=== PATIENT | female | born 1980 | race Caucasian/White ===

== ENCOUNTER → 2019-05-23 08:44 | Outpatient (CLI) | payer OTHER, SELFPAY ==
--- NOTE | ~2019-05-23 | MM_ITS ---
EXAMINATION: MM screening gaby BI w keshav HISTORY: Screening mammogram TECHNIQUE: Craniocaudal and mediolateral oblique 3-D tomosynthesis images were obtained and synthetic 2-D images were generated. CAD analysis was submitted and interpreted. COMPARISON: No prior mammogram is available for comparison at this institution. BREAST PARENCHYMAL COMPOSITION: The breasts are heterogeneously dense, which may obscure small masses . FINDINGS: There is no evidence of suspicious mass, calcification, or architectural distortion to sugg est malignancy in either breast. IMPRESSION: 1. No mammographic evidence of malignancy. 2. Recommend routine screening mammography in one year. BI-RADS Category 1: Negative Reviewed, dictated and finalized at location A. [employer]
== END ==
PROVIDERS: PCP Nurse Practitioner Family; Visit Provider Nurse Practitioner Family
DX: Z12.31 Encounter for screening mammogram for malignant neoplasm of breast (principal)
CPT/HCPCS: 77063; 77067

== ENCOUNTER 2020-04-18 10:08 | Emergency (ER) | payer OTHER, SELFPAY ==
[2020-04-18 10:18] VITALS: BP 151/77; PULSE 93; RESP 16; TEMP 36.6; O2SAT 100
--- NOTE | 2020-04-18 10:26 | ED.GENADULT ---
HPI - General Adult General Chief complaint: Wound/Laceration Stated complaint: severe back pain/nausea Source: patient and RN notes reviewed Mode of arrival: ambulatory Limitations: no limitations History of Present Illness HPI narrative: This is a 40-year-old white female who presented to urgent Care today with complaints of lower back and neck pain, decreased appetite, unexpected weight loss, nausea without vomiting and fatigue. According to patient she started developing symptoms on Saturday she went that Saturday to get a rapid Covid test which was negative. She notes that she took Tylenol at home for her pain she did get relief. She does not have back pain with movement and it does not radiate which leads me to believe that it is not muscular related. Patient denies any dysuria, urinary frequency, urgency, suprapubic discomfort. CVA tenderness is negative. The patient denies SOB, CP, palpitation, extremity numbness, lightheadedness, dizziness, constipation, diarrhea, chills, or fever. Influenza negative Related Data Home Medications Medication Instructions Recorded Confirmed levonorgestrel-ethinyl estrad 1 tablet PO DAILY 04/18/20 04/18/20 [Tyler (28)] Allergies Allergy/AdvReac Type Severity Reaction Status Date / Time No Known Allergies Allergy Verified 04/18/20 10:23 Review of Systems Review of Systems: All systems reviewed & are unremarkable except as noted in HPI and below (10 point system review) [facility] Social History Social History Gender identity (if verbalized by the patient): Female Exam Narrative: Exam Narrative: GENERAL: This is a well-nourished, well-developed patient, in no apparent distress. HEAD: normocephalic, atraumatic. EYES: PERRL. Sclera clear/white. Vision is grossly intact. EARS: External ears normal, auditory canals clear and without drainage, TMs normal without perforation. Hearing grossly intact. NOSE: External nose normal with no obvious nasal discharge, nares without redness, no rhinorrhea. THROAT: Mucous membranes moist, posterior pharynx slightly erythematous. NECK: Neck supple, non-tender without lymphadenopathy, masses or thyromegaly. CARDIOVASCULAR: Regular rate and rhythm without murmurs, gallops, or rubs. RESPIRATORY: Clear to auscultation. Breath sounds equal bilaterally. No wheezes, rales, or rhonchi. GASTROINTESTINAL: Abdomen soft, non-tender, nondistended. Bowel sounds are active. No hepato-splenomegaly, or palpable masses. No guarding. SKIN: warm, intact with no suspicious lesions or rash, good texture and turgor. NEURO: awake, alert, and oriented to person, place and time. There were no obvious focal neurologic abnormalities. Steady gait EXTREMITIES: Normal range of motion. No edema. No calf tenderness. Negative Homans sign bilaterally. BACK: Nontender without deformity or crepitance. No flank tenderness. Course Vital Signs Vital signs: Vital Signs Temperature 97.8 F 04/18/20 10:18 Pulse Rate 93 04/18/20 10:18 Respiratory Rate 16 04/18/20 10:18 Blood Pressure 151/77 H 04/18/20 10:18 Pulse Oximetry 100 04/18/20 10:18 Temperature 97.8 F 04/18/20 10:18 Pulse Rate 93 04/18/20 10:18 Respiratory Rate 16 04/18/20 10:18 Blood Pressure 151/77 H 04/18/20 10:18 Pulse Oximetry 100 04/18/20 10:18 Medical Decision Making Differential Diagnosis Differential Diagnosis: Viral infection versus urinary tract infection Vital Signs Vital Signs: Vital Signs Temperature 97.8 F 04/18/20 10:18 Pulse Rate 93 04/18/20 10:18 Respiratory Rate 16 04/18/20 10:18 Blood Pressure 151/77 H 04/18/20 10:18 Pulse Oximetry 100 04/18/20 10:18 Temperature 97.8 F 04/18/20 10:18 Pulse Rate 93 04/18/20 10:18 Respiratory Rate 16 04/18/20 10:18 Blood Pressure 151/77 H 04/18/20 10:18 Pulse Oximetry 100 04/18/20 10:18 Lab Data Lab results reviewed: Yes I reviewed th
== END 2020-04-18 11:02 | disposition home or self-care (01) ==
PROVIDERS: Emergency Provider Nurse Practitioner
DX: R11.0 Nausea (principal); M54.5 Low back pain; R53.83 Other fatigue; Z20.828 Contact with and (suspected) exposure to other viral communicable diseases
CPT/HCPCS: 81003; 87804; 99213; G0463

== ENCOUNTER 2020-04-19 09:16 | Outpatient (NON) | payer OTHER, SELFPAY ==
[2020-04-19 18:45] LABS: SARS-CoV-2 RNA PCR Negative
== END 2020-04-19 09:17 ==
PROVIDERS: Visit Provider Nurse Practitioner
DX: R11.0 Nausea (principal); R53.83 Other fatigue
CPT/HCPCS: 87635; C9803; U0003

== ENCOUNTER 2020-12-03 06:56 | Outpatient (CLI) | payer BC, SELFPAY ==
[2020-12-03 07:16] LABS: Basophils Percent Auto 0.2 % (0.2-1.2); Eosinophils Absolute Auto 0.1 K/mm3 (0-0.3); Eosinophils Percent Auto 1.4 % (0-4.4); Hematocrit 39.7 % (37.0-47.0); Hemoglobin 13.2 g/dL (12.0-15.0); Immature Granulocyte Absolute 0.02 K/mm3 (0.00-0.031); Immature Granulocyte Percent A 0.3 % (0-0.5); Lymphocytes Absolute Auto 1.76 K/mm3 (0.9-3.2); Lymphocytes Percent Auto 28.1 % (18.3-44.2); Mean Corpuscular HGB Conc 33.2 g/dl (32-36); Mean Corpuscular Hemoglobin 31.1 pg (26-34); Mean Corpuscular Volume 93.6 fl (80-100); Mean Platelet Volume 9.6 fl (7.4-10.4); Monocytes Absolute Auto 0.4 K/mm3 (0.1-0.6); Neutrophils Absolute Auto 3.9 K/mm3 (1.3-6.7); Platelet Count Result 317 k/mm3 (150-375); Red Blood Count 4.24 M/mm3 (4.2-5.4); Red Cell Distribution Width 12.8 % (11.5-14.5); White Blood Count 6.3 K/mm3 (4.5-10.0)
[2020-12-03 07:27] LABS: Hemoglobin A1C 5.2 % (<5.7)
[2020-12-03 08:49] LABS: Free T4 Free Thyroxine 0.86 ng/mL (0.78-2.19); Vitamin D 25 Hydroxy 61.4 ng/mL
[2020-12-03 09:19] LABS: Alanine Aminotransferase 14 U/L (4-35); Albumin Level 3.8 g/dL (3.5-5.1); Alkaline Phosphatase 60 U/L (38-126); Anion Gap 6 mmol/L (8-16); Aspartate Amino Transferase 22 U/L (14-36); Bilirubin,Total 1.1 mg/dL (0.2-1.3); Blood Urea Nitrogen 12 mg/dL (7-17); Calcium 9.3 mg/dL (8.4-10.2); Carbon Dioxide 23 mmol/L (22-30); Chloride 111 mmol/L (98-107); Cholesterol 176 mg/dL (0-200); Estimated Glomerular Filt Rate > 60; Glucose 97 mg/dL (65-110); HDL Direct 79 mg/dL; Lactate Dehydrogenase 290 U/L (313-618); Potassium 3.5 mmol/L (3.4-5.0); Sodium 140 mmol/L (137-145); Triglycerides 63 mg/dL (<150)
[2020-12-03 09:35] LABS: LDL Cholesterol Direct 80 mg/dL
[2020-12-03 10:42] LABS: Folic Acid 15.5 ng/mL (2.76->20)
== END 2020-12-03 06:57 | disposition home or self-care (01) ==
PROVIDERS: PCP Nurse Practitioner Family; Referring Provider Nurse Practitioner; Visit Provider Nurse Practitioner Family
DX: E55.9 Vitamin D deficiency, unspecified (principal); Z13.0 Encounter for screening for diseases of the blood and blood-forming organs and certain disorders involving the immune mechanism; Z13.29 Encounter for screening for other suspected endocrine disorder; Z13.220 Encounter for screening for lipoid disorders; Z13.1 Encounter for screening for diabetes mellitus
CPT/HCPCS: 36415; 80053; 80061; 82306; 82607; 82746; 83036; 83615; 84439; 84443; 85025

== ENCOUNTER → 2022-04-07 07:48 | Outpatient (CLI) | payer BC, SELFPAY ==
--- NOTE | ~2022-04-07 | MM_ITS ---
EXAMINATION: MM screening gaby BI w keshav HISTORY: Screening TECHNIQUE: Craniocaudal and mediolateral oblique 3-D tomosynthesis images were obtained and synthetic 2-D images were generated. CAD analysis was submitted and interpreted. COMPARISON: 05/23/2019 BREAST PARENCHYMAL COMPOSITION: The breasts are heterogeneously dense, which may obscure small masses . FINDINGS: There is no evidence of suspicious mass, calcification, or architectural distortion to sugg est malignancy in either breast. There has been no suspicious interval change. IMPRESSION: 1. No mammographic evidence of malignancy. 2. Recommend routine screening mammography in one year. BI-RADS Category 1: Negative Reviewed, dictated and finalized at location A. [employer]
== END ==
PROVIDERS: PCP Nurse Practitioner Family; Visit Provider Advanced Practice Midwife
DX: Z12.31 Encounter for screening mammogram for malignant neoplasm of breast (principal)
CPT/HCPCS: 77063; 77067

== ENCOUNTER 2023-06-18 15:20 | Emergency (ER) | payer OTHER, BC, SELFPAY ==
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
[2023-06-18 15:33] VITALS: BP 154/83; PULSE 100; RESP 16; TEMP 37.7; O2SAT 99
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
== END 2023-06-18 16:33 | disposition home or self-care (01) ==
PROVIDERS: Emergency Provider Nurse Practitioner Family; PCP Nurse Practitioner Family
DX: S39.012A Strain of muscle, fascia and tendon of lower back, initial encounter (principal); S29.012A Strain of muscle and tendon of back wall of thorax, initial encounter; V43.52XA Car driver injured in collision with other type car in traffic accident, initial encounter; M41.9 Scoliosis, unspecified
CPT/HCPCS: 72072; 72100; 99213; G0463

== ENCOUNTER 2023-07-19 15:01 | Outpatient (CLI) | payer BC, SELFPAY ==
--- NOTE | ~2023-07-19 | CT_ITS ---
EXAMINATION: CT soft tissue neck w con DATE: 07/19/2023 15:47 INDICATION: Cervical radiculopathy. TECHNIQUE: Computed tomography (CT) of the neck was performed with 75 mL Omnipaque-350 intravenous co ntrast. Automated exposure control and iterative reconstruction technique were employed. The dose-fabiano gth product was 383.73 mGy-cm. 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 There are no pathologically enlarged lymph nodes. The cervical c arotid arteries are normal. There is mild mucosal thickening in the paranasal sinuses. There is a rig ht otomastoid effusion. There is a small left mastoid effusion. There is mild cervical spondylosis. IMPRESSION: 1. No cervical lymphadenopathy. 2. Duplicated aortic arch. Reviewed, dictated and finalized at location E.
--- NOTE | ~2023-07-19 | CT_ITS ---
EXAMINATION: CT brain wo/w con DATE: 07/19/2023 15:47 INDICATION: Right face numbness. Numbness and tingling in the arms. TECHNIQUE: Computed tomography (CT) of the head was performed without and with 75 mL Omnipaque 350 in travenous contrast. The mA was adjusted according to patient size. Iterative reconstruction technique was employed. The dose-length product was 1124.19 mGy-cm. COMPARISON: None FINDINGS: There is no intracranial hemorrhage, acute infarction, or abnormal intracranial mass lesion . The ventricles are normal in size. The paranasal sinuses are clear. The orbits are normal. There is a right otomastoid effusion. There is a left mastoid effusion. IMPRESSION: 1. Normal brain. Reviewed, dictated and finalized at location A. IMPRESSION: 1. Normal brain.
== END 2023-07-19 15:02 ==
DX: Q25.45 Double aortic arch (principal)
CPT/HCPCS: 70470; 70491; Q9967

== ENCOUNTER 2023-09-03 10:02 | Outpatient (CLI) | payer BC, SELFPAY ==
--- NOTE | ~2023-09-03 | CT_ITS ---
EXAMINATION: CTA chest DATE: 09/03/2023 10:59 INDICATION: Double aortic arch TECHNIQUE: Computed tomographic angiography (CTA) of the chest was performed with 50 mL Omnipaque-350 intravenous contrast. Volume-rendered 3D-reconstructions of the aorta and large arteries were constr ucted by the technologist on a separate workstation. Automated exposure control and iterative reconst ruction technique were employed. The dose-length product was 346.17 mGy-cm. COMPARISON: CT dated 07/19/2023 FINDINGS: Lungs are clear with no pneumonia, suspicious pulmonary nodules, pulmonary edema or pleural effusion. Heart size is normal. No pericardial effusion. Anatomic variant right-sided aortic arch with mirror image branching pattern arising from the arch with left-sided brachiocephalic trunk supplying the lef t common carotid and left subclavian arteries. There is a diverticulum of Kommerell arising from the medial side of the proximal descending thoracic aorta which appears to contact the medial wall of the left subclavian artery without a definitive contrast opacified communication between the lumens to s uggest a true double aortic arch. There is does however appear to be a ductus arteriosum versus ligam entum arteriosum extending between the diverticulum of Kommerell and cephalad aspect of the bifurcati on of the main pulmonary artery. These vascular structures essentially encircle and compressed the tr achea and proximal esophagus. The aorta is normal in caliber with no dissection. No pathologically en larged abdominal or pelvic lymphadenopathy. Visualized upper abdomen is unremarkable. The degree thor acolumbar dextroscoliosis with moderate to severe spondylosis. IMPRESSION: 1. 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 This appears to encircle and compress the more central trachea and upper esophagus. Reviewed, dictated and finalized at location B. IMPRESSION: 1. 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 This appears to encircle and compress the more central trachea and upper esophagus.
== END 2023-09-03 10:03 ==
PROVIDERS: PCP Internal Medicine Cardiovascular Disease; Visit Provider Internal Medicine Cardiovascular Disease
DX: Q25.45 Double aortic arch (principal); Z87.891 Personal history of nicotine dependence
CPT/HCPCS: 71275; Q9967

== ENCOUNTER 2023-11-28 07:15 | Outpatient (CLI) | payer BC, SELFPAY ==
--- NOTE | ~2023-11-28 | MM_ITS ---
EXAMINATION: MM screening gaby BI w keshav HISTORY: Screening TECHNIQUE: Craniocaudal and mediolateral oblique 3-D tomosynthesis images were obtained and synthetic 2-D images were generated. CAD analysis was submitted and interpreted. COMPARISON: Comparison to multiple prior studies sequentially, with oldest reviewed study dated 04/2019. BREAST PARENCHYMAL COMPOSITION: Not dense: There are scattered areas of fibroglandular density. FINDINGS: There is no evidence of suspicious mass, calcification, or architectural distortion to sugg est malignancy in either breast. There has been no suspicious interval change. IMPRESSION: 1. No mammographic evidence of malignancy. 2. Recommend routine screening mammography in one year. BI-RADS Category 1: Negative Reviewed, dictated and finalized at location B.
== END 2023-11-28 07:16 ==
LOC: MICIMG 07:17
PROVIDERS: PCP Obstetrics & Gynecology Gynecology
DX: Z12.31 Encounter for screening mammogram for malignant neoplasm of breast (principal)
CPT/HCPCS: 77063; 77067

== ENCOUNTER 2024-07-04 08:44 | Outpatient (CLI) | payer BC, SELFPAY ==
--- NOTE | ~2024-07-04 | US_ITS ---
Pelvic ultrasound. Clinical History: Pelvic pain Technique: Realtime transabdominal scanning of the pelvis was performed. Color flow Doppler and Doppl er spectral analysis were performed. Findings: The uterus is anteverted. The endometrial stripe has a thickness of 3 mm. No focal mass is identified. The right ovary measures 3.3 x 3.5 x 1.1 cm. No significant right ovarian or adnexal mass is seen. The left ovary measures 2.4 x 3.1 x 1.7 cm. No significant left ovarian or adnexal mass is seen. There is no evidence of free fluid in the cul de sac. Impression: Unremarkable pelvic ultrasound. Reviewed, dictated and finalized at location . Impression: Unremarkable pelvic ultrasound.
== END 2024-07-04 08:45 | disposition home or self-care (01) ==
LOC: MICIMG 08:45
PROVIDERS: PCP Obstetrics & Gynecology Gynecology; Visit Provider Nurse Practitioner Women's Health
DX: O26.899 Other specified pregnancy related conditions, unspecified trimester (principal); R10.2 Pelvic and perineal pain; Z3A.00 Weeks of gestation of pregnancy not specified
CPT/HCPCS: 76856

== ENCOUNTER 2025-04-16 12:37 | Outpatient (CLI) | payer BC, SELFPAY ==
--- OUTSIDE RECORDS SUMMARY | 2025-04-16 12:45 | XMS_ITS | Clinical Summary ---
Author Organization [facility] Address [address] [place] [address] Care Team Providers Care Fire Management Specialist Name Role Phone Unknown, [place] Primary Care Provider Unavail able Maria Eugenia Vega OD Unavailable Allergies No known active allergies Medications Altavera, 28, 0.15-0.03 mg per tablet Take 1 tablet by mouth daily Active Active Problems No known active problems Surgical History Surgery Date Site/Laterality Comments SECTION 2017 Medical History Medical History Date Comments Meningitis In childhood Aortic arch anomaly Seeing a car diologist Tinnitus Hearing loss Family History Medical History Relation Name Comments Multiple sclerosis Father Relation Name Status Comments Father Social History Tobacco Use Types Packs/Day Years Used Date Smoking Tobacco: Some Days Cigarettes Smokeless Tobacco: Never Tobacco Cessation:Ready to Q uit: No; Counseling Given: Yes Personal Safety Answer Date Recorded Have you ever been in or are you currently in a harmful physical or emotional relationship or is someone making you feel afraid or unsafe? 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 Gender Identity Not on file Sexual Orientation Not on file Last Filed Vital Signs Vital Sign Reading Time Taken Comments Blood Pressure 130/72 10/09/2023 2:00 PM CDT Pulse 81 10/09/2023 2:00 PM CDT Temperature 36.9 C (98.5 F) 05/24/2023 12:15 AM SENIOR LEAD DEVELOPER Respiratory Rate 16 10/09/2023 2:00 PM CDT Oxygen Saturation 99% 10/09/2023 2:00 PM CDT Inhaled Oxygen Concentration - - Weight 68 kg (150 lb) 10/09/2023 2:00 PM CDT Height 160 cm (5' 3) 10/09/2023 2:00 PM CDT Body Mass Index 26.57 10/09/2023 2:00 PM CDT Plan of Treatment Health Maintenance Due Date Last Done Comments Breast Cancer Screening-Mammogram 1978 Cervical Cancer Screening 1978 Colon Cancer Screening-Colonoscopy 1978 Depression Screening 1978 Hepatitis C Screening 1978 Hepatitis B Screening 1996 Regular Well Visit/Exam 18-64 1996 Pneumococcal vaccine <65 (1 of 2 - PCV) 1997 Influenza Vaccine (#1) 2024 DTaP/Tdap/Td Vaccine (2 - Td or Tdap) 07/29/202512/2015 Insurance [employer] Care Teams Fire Management Specialist Relationship Specialty Start Date End Date Unknown, Notinfile PCP - General 05/24/23 Maria Eugenia Vega, OD [address] [place] [address] Optometry 07/31/23
--- OUTSIDE RECORDS SUMMARY | 2025-04-16 12:45 | XMS_ITS | Clinical Summary ---
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 Gender Identity Not on file Sexual Orientation Not on file Plan of Treatment Health Maintenance Due Date Last Done Comments Hepatitis C Virus (HCV) Screening 1978 Hepatitis B Immunization (1 of 3 - 19+ 3-dose series) 1997 Pap Smear 1999 Cervical Cancer Screening (CCS) 2008 HPV/Cotest 2008 Cologuard 2023 Colonoscopy 2023 Colorectal Cancer Screening 2023 Immunochemical Fecal Occult Blood 2023 Influenza Immunization (#1) 2024 SARS-COV-2 Immunization ( season) 2024 Respiratory Syncytial Virus (RSV) Immunization (Adult) (1 - 1-dose 75+ series) 2053 DTaP/Tdap/Td Immunization Discontinued 07/30/2015 TdaP Immunization Completed 07/30/2015 Human Papillomavirus (HPV) Immunization Aged Out No longer eligible b ased on patient's age to complete this topic Meningococcal Immunization (ACWY) Aged Out No longer eligible based on patient's age to complete this topic Pneumococcal Immunization Combined Aged Out No longer eligible based on patient's age to complete this topic Rotavirus Immunization Aged Out No lo nger eligible based on patient's age to complete this topic
--- OUTSIDE RECORDS SUMMARY | 2025-04-16 12:45 | XMS_ITS | Clinical Summary ---
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
== END 2025-04-16 12:38 | disposition home or self-care (01) ==
PROVIDERS: Visit Provider Otolaryngology
DX: H90.3 Sensorineural hearing loss, bilateral (principal); H83.8X2 Other specified diseases of left inner ear; H93.12 Tinnitus, left ear
CPT/HCPCS: 92557